=== PATIENT | female | born 1960 | race Caucasian/White ===

== ENCOUNTER → 2017-09-06 06:58 | Outpatient (CLI) | payer OTHER, SELFPAY ==
[2017-09-06 08:47] LABS: Alanine Aminotransferase 27 IU/L (9-52); Albumin 4.4 g/dL (3.5-5.0); Albumin Globulin Ratio 1.4 (1.0-2.8); Alkaline Phosphatase 80 U/L (38-126); Aspartate Aminotransferase 28 IU/L (14-36); Bilirubin Total 0.6 mg/dL (0.2-1.3); Calcium 9.8 mg/dL (8.4-10.2); Cholesterol 209 mg/dL (140-199); Estimated Glomerular Filt Rate > 60.0 mL/min (>60); Globulin 3.2 g/dL (1.7-4.1); Glucose 85 mg/dL (70-100); HDL Cholesterol 65 mg/dL (40-60); HEMOLYSIS < 15 (0-50); LDL Cholesterol Calculated 124 mg/dL (<100); Sodium 142 mmol/L (137-145); Total Protein 7.6 g/dL (6.3-8.2); Triglycerides 98 mg/dL (35-150)
[2017-09-06 09:05] LABS: Free T4, Direct Thyroxine 0.72 ng/dL (0.78-2.19)
[2017-09-06 09:20] LABS: Thyroid Stimulating Hormone 2.84 uIU/mL (0.47-4.68)
== END ==
PROVIDERS: PCP Internal Medicine; Visit Provider Internal Medicine
DX: N95.1 Menopausal and female climacteric states (principal); J45.909 Unspecified asthma, uncomplicated
CPT/HCPCS: 36415; 80053; 80061; 84439; 84443

== ENCOUNTER 2017-09-25 18:31 | Emergency (ER) | payer OTHER, SELFPAY ==
[2017-09-25 18:33] VITALS: BP 142/87; PULSE 69; RESP 18; TEMP 36.6; O2SAT 97; BMI 25.8
== END 2017-09-25 20:59 | disposition left against medical advice (07) ==
PROVIDERS: Family Provider Internal Medicine; PCP Internal Medicine
DX: R51 Headache (principal)
CPT/HCPCS: 99282

== ENCOUNTER 2017-09-26 13:22 | Emergency (ER) | payer OTHER, SELFPAY ==
[2017-09-26 13:30] VITALS: BP 125/81; PULSE 80; RESP 20; TEMP 36.6; O2SAT 98; BMI 26.1
--- NOTE | 2017-09-26 13:38 | DI.CT.S_ITS ---
PROCEDURE: CT HEAD/BRAIN WO CON INDICATIONS: 57 year-old female with bilateral temporal headaches. TECHNIQUE: Noncontrast 4.5 mm thick angled axial sections acquired from the foramen magnum to the vertex, with coronal and sagittal reformats. For radiation dose reduction, the following was used: automated exposure control, adjustment of mA and/or kV according to patient size. COMPARISON: None. FINDINGS: Image quality: Excellent. CSF spaces: Basal cisterns are patent. No extra-axial fluid collections. Ventricles are normal in size and shape. Brain: No midline shift. No intracranial masses or hemorrhage. Diaz-white matter interface is normal. Skull and face: Calvarium and visualized facial bones are intact, without suspicious lesions. Sinuses: Visualized sinuses and mastoids are clear. IMPRESSION: No acute intracranial abnormalities. Dictated by: Franck Husain M.D. on 09/26/2017 at 13:56 Approved by: Franck Husain M.D. on 09/26/2017 at 13:59
--- NOTE | 2017-09-26 13:50 | PC.NURSE ---
Pain in both temples
--- NOTE | 2017-09-26 14:18 | ED.HA ---
HPI - Headache <Luly JoseBLADE smileyP-BC - Last Filed: 09/26/17 19:17> General Chief Complaint: Headache Stated Complaint: NEED CT ON HEAD, HEADACHES Time Seen by Provider: 09/26/17 14:16 Source: patient and family Mode of arrival: ambulatory Limitations: no limitations History of Present Illness HPI Narrative: Patient presents with chief complaint of headache from sexual activity. She came to the emergency department yesterday, but left without being seen by the provider as she was sick of waiting. She was sent there from her PCPs office, who is concerned about new onset headache after sexual activity an orgasm. She denies any confusion, weakness, dizziness or altered mental status. Is described as a headache on both sides of her head and her temporal region. Related Data Home Medications Medication Instructions Recorded Confirmed CA PANTOTHENATE/FOLIC ACID/VIT 1 tab PO Q DAY #0 02/07/12 09/26/17 (MULTIVITAMIN) CALCIUM CITRATE/VITAMIN D3 1 tab PO DAILY #0 05/20/12 09/26/17 VITAMIN B COMPLEX (Vitamin B 1 tab PO DAILY #0 05/20/12 09/26/17 Complex) latanoprost 0.005 % eye drops 1 drp OPHTHALMIC (EYE) BEDTIME ml 09/11/17 09/26/17 peg 400-propylene glycol 0.4 %-0.3 1 drp OPHTHALMIC (EYE) DIRECTED 09/11/17 09/26/17 % eye drops ml Fish Oil 1 cap PO DAILY 09/26/17 09/26/17 Qvar RediHaler 1 puff INHALATION PRN PRN 09/26/17 09/26/17 estradiol [Vagifem] 10 mcg VG 2XW 09/26/17 09/26/17 fluticasone 1 spray INTRANASAL BID 09/26/17 09/26/17 magnesium oxide 400 mg PO DAILY 09/26/17 09/26/17 multivitamin 1 tab PO DAILY 09/26/17 09/26/17 peg 400-propylene glycol [Systane 1 drp OPHTHALMIC (EYE) DIRECTED 09/26/17 09/26/17 Ultra] valacyclovir 1,000 mg PO TID 09/26/17 09/26/17 Previous Rx's Medication Instructions Recorded venlafaxine [Effexor XR] 75 mg PO QDAY #90 tab 03/13/17 bupropion HCl [Wellbutrin SR] 150 mg PO BID #60 tab 09/17/17 Allergies Allergy/AdvReac Type Severity Reaction Status Date / Time No Known Drug Allergies Allergy Verified 09/25/17 17:57 Review of Systems <AUBREY Romero- - Last Filed: 09/26/17 19:17> Review of Systems GENERAL: Denies chills, fatigue, malaise, fever, sweats. HEENT: Denies sinus pain, ear pain, sore throat, difficulty swallowing, dizziness. RESPIRATORY: Denies dyspnea, cough, wheezing, hemoptysis, sputum. CARDIOVASCULAR: Denies chest pain, palpitations, orthopnea, edema, GASTROINTESTINAL: Denies nausea, vomiting, abdominal pain, diarrhea, constipation, melena. : Denies dysuria, frequency, incontinence, hematuria, urinary retention. MUSCULOSKELETAL: denies weakness, joint pain, or bony pain SKIN: Denies rash, skin lesions, or other NEUROLOGIC: see HPI PSYCHIATRIC: No concerning psychosocial issues. 12 point review of systems is negative except for those stated above Exam <AUBREY Romero- - Last Filed: 09/26/17 19:17> Narrative Exam Narrative: GENERAL: This is a well-nourished, well-developed patient, with at bedside HEAD: Atraumatic. Normocephalic. No temporal or scalp tenderness. EYES: Pupils equal round and reactive. Extraocular motions intact. No scleral icterus. No injection or drainage. ENT: Nose without bleeding, purulent drainage or septal hematoma. Throat without erythema, tonsillar hypertrophy or exudate. Uvula midline. Airway patent. NECK: Trachea midline. No JVD or lymphadenopathy. Supple, nontender, no meningeal signs. CARDIOVASCULAR: Regular rate and rhythm without murmurs, gallops, or rubs. RESPIRATORY: Clear to auscultation. Breath sounds equal bilaterally. No wheezes, rales, or rhonchi. GASTROINTESTINAL: Abdomen soft, non-tender, nondistended. No hepato-splenomegaly, or palpable masses. No guarding. EXTREMITIES: No clubbing, cyanosis, or edema. No joint tenderness, effusion, or edema noted. BACK: Nontender without deformity or crepitance. No flank tenderness. NEURO: AOx3., speech is normal without slurring, strength bilateral upper and lower extremities. Negative finger-nose test. Negative chin heel test. Cognition intact. Facial nerves grossly normal. SKIN: No rash or erythema. Initial Vital Signs Initial Vital Signs: Vital Signs Temperature 97.9 F 09/26/17 13:30 Pulse Rate 80 09/26/17 13:30 Respiratory Rate 20 09/26/17 13:30 Blood Pressure 125/81 H 09/26/17 13:30 Pulse Oximetry 98 09/26/17 13:30 <Aarti Fernando DO - Last Filed: 09/28/17 07:51> Initial Vital Signs Initial Vital Signs: Vital Signs Temperature 97.9 F 09/26/17 13:30 Pulse Rate 80 09/26/17 13:30 Respiratory Rate 20 09/26/17 13:30 Blood Pressure 125/81 H 09/26/17 13:30 Pulse Oximetry 98 09/26/17 13:30 Course <AUBREY Romero-BC - Last Filed: 09/26/17 19:17> Orders Ordered: ED Orders 09/26/17 13:38 CT head/brain wo con Stat Reevaluation(s) Reevaluation #1: Discussed negative CT result with the patient as well as her . Patient again refused pain medication for headache, stating her headache was only a 2 to 3/10. She states she would rather take something at home. She states understanding of becoming re-evaluated if any neuro deficits occur including slurred speech, weakness on 1 side, or confusion. Time: 14:40 Reevaluation #2: Discussed with patient and that negative CT does not entirely rule out a brain bleed or subarachnoid hemorrhage. Discussed that a lumbar puncture would be needed to do that. However patient has been do not want to go that route and declined that at this point time. Again refused pain medication and stated understanding of discharge and return precautions. Time: 14:50 Vital Signs - 8 hr 09/26/17 13:30 Temperature 97.9 F Pulse Rate 80 Respiratory Rate 20 Blood Pressure 125/81 H Pulse Oximetry 98 <Aarti Fernando DO - Last Filed: 09/28/17 07:51> Orders Ordered: ED Orders 09/26/17 13:38 CT head/brain wo con Stat Vital Signs - 8 hr 09/26/17 13:30 Temperature 97.9 F Pulse Rate 80 Respiratory Rate 20 Blood Pressure 125/81 H Pulse Oximetry 98 MDM - Headache <Luly Chaparro, WARDROBE ASSISTANT-BC - Last Filed: 09/26/17 19:17> Imaging Data CT scan - head: Radiologist's impression: BILL [place] [id number] CT Scan Report Signed Patient: Roxana Romero MR#: [id number] : 1960 Acct:[id number] Age/Sex: 57 / F Date of Service: 09/26/17 Loc: ED Accession Number: [id number] Procedure: CT head/brain wo con Ordering Provider: Aarti Fernando D.O. PROCEDURE: CT HEAD/BRAIN WO CON INDICATIONS: 57 year-old female with bilateral temporal headaches. TECHNIQUE: Noncontrast 4.5 mm thick angled axial sections acquired from the foramen magnum to the vertex, with coronal and sagittal reformats. For radiation dose reduction, the following was used: automated exposure control, adjustment of mA and/or kV according to patient size. COMPARISON: None. FINDINGS: Image quality: Excellent. CSF spaces: Basal cisterns are patent. No extra-axial fluid collections. Ventricles are normal in size and shape. Brain: No midline shift. No intracranial masses or hemorrhage. Diaz-white matter interface is normal. Skull and face: Calvarium and visualized facial bones are intact, without suspicious lesions. Sinuses: Visualized sinuses and mastoids are clear. IMPRESSION: No acute intracranial abnormalities. Dictated by: Franck Husain M.D. on 09/26/2017 at 13:56 Approved by: Franck Husain M.D. on 09/26/2017 at 13:59 [facility] Narrative Medical decision making narrative: Patient presents with headache prompted by sexual activity. Her neuro exam is benign and her vital signs are within normal limits. A CT was performed to rule out any intracranial abnormality. She repeatedly declined pain medication in the emergency department and stated that just wanted a head CT. Given that her headache was only a 2 to 3/10 and she was declining medication as well as a negative head CT, I discharged her to home with her . She declined any further workup today. She plans on following up with her primary care provider if needed. I discussed at length with patient and her return precautions to the emergency department including weakness, slurred speech or any signs or symptoms of stroke or acute neuro symptoms. Discharge Plan Departure Patient Disposition: Home, Self-Care Clinical Impression: Headache Discharge Date/Time: 09/26/17 14:59 Interventions: ED Discharge Assessment Last Done: 09/26/17 14:58 Instructions: Sexual Headaches: From Ecstasy to Agony, DI for Headache Activity Restrictions/Additional Instructions: Your head CT came back normal today. Feel free to come back to the emergency department if you have any concerns about stroke or head bleed including confusion, slurred speech or any other acute neuro concerns. Feel free to take [id number] medication as needed for pain. You declined pain medication in the emergency department. I have given you information on headaches and headaches induced by sexual activity. I suggest following up with your primary care provider. Prescriptions: No Action CA PANTOTHENATE/FOLIC ACID/VIT (MULTIVITAMIN) 1 tab PO Q DAY Qty: 0 RF: 0 CALCIUM CITRATE/VITAMIN D3 1 tab PO DAILY Qty: 0 RF: 0 VITAMIN B COMPLEX (Vitamin B Complex) 1 tab PO DAILY Qty: 0 RF: 0 venlafaxine [Effexor XR] 75 MG capsule,extended release 24hr 75 mg PO QDAY Qty: 90 RF: 3 bupropion HCl [Wellbutrin SR] 150 mg tablet extended release 12 hr 150 mg PO BID Qty: 60 RF: 2 latanoprost [Xalatan] 0.005 % drops 1 drp ophthalmic (eye) BEDTIME RF: 0 peg 400-propylene glycol [Systane Ultra] 0.4-0.3 % drops 1 drp ophthalmic (eye) DIRECTED RF: 0 magnesium oxide 400 mg Tablet 400 mg PO DAILY RF: 0 fluticasone 50 mcg/actuation [place],Suspension 1 spray INTRANASAL BID RF: 0 peg 400-propylene glycol [Systane Ultra] 0.4-0.3 % Drops 1 drp ophthalmic (eye) DIRECTED RF: 0 Fish Oil 1 cap PO DAILY RF: 0 Qvar RediHaler 1 puff Inhalation PRN PRN (Reason: Shortness Of Breath) RF: 0 multivitamin 1 tab PO DAILY RF: 0 valacyclovir 1,000 MG tablet 1,000 mg PO TID RF: 0 estradiol [Vagifem] 10 MCG tablet 10 mcg VG 2XW RF: 0 Referrals: Mike Aguilar MD [Primary Care Provider] - <Aarti Fernando DO - Last Filed: 09/28/17 07:51> Cosign ED Attending Cosgiovannaature Attestation: I was immediately available in the department for consultation. Documentation has been reviewed. I agree with assessment and plan.
--- NOTE | 2017-09-26 14:48 | ED_ITS ---
HPI - Headache <Lluy JoseBLADE smileyP-BC - Last Filed: 09/26/17 19:17> General Chief Complaint: Headache Stated Complaint: NEED CT ON HEAD, HEADACHES Time Seen by Provider: 09/26/17 14:16 Source: patient and family Mode of arrival: ambulatory Limitations: no limitations History of Present Illness HPI Narrative: Patient presents with chief complaint of headache from sexual activity. She came to the emergency department yesterday, but left without being seen by the provider as she was sick of waiting. She was sent there from her PCPs office, who is concerned about new onset headache after sexual activity an orgasm. She denies any confusion, weakness, dizziness or altered mental status. Is described as a headache on both sides of her head and her temporal region. Related Data Home Medications Medication Instructions Recorded Confirmed CA PANTOTHENATE/FOLIC ACID/VIT 1 tab PO Q DAY #0 02/07/12 09/26/17 (MULTIVITAMIN) CALCIUM CITRATE/VITAMIN D3 1 tab PO DAILY #0 05/20/12 09/26/17 VITAMIN B COMPLEX (Vitamin B 1 tab PO DAILY #0 05/20/12 09/26/17 Complex) latanoprost 0.005 % eye drops 1 drp OPHTHALMIC (EYE) BEDTIME ml 09/11/17 peg 400-propylene glycol 0.4 %-0.3 1 drp OPHTHALMIC (EYE) DIRECTED 09/11/17 09/26/17 % eye drops ml Fish Oil 1 cap PO DAILY 09/26/17 09/26/17 Qvar RediHaler 1 puff INHALATION PRN PRN 09/26/17 09/26/17 estradiol [Vagifem] 10 mcg VG 2XW 09/26/17 09/26/17 fluticasone 1 spray INTRANASAL BID 09/26/17 09/26/17 magnesium oxide 400 mg PO DAILY 09/26/17 09/26/17 multivitamin 1 tab PO DAILY 09/26/17 09/26/17 peg 400-propylene glycol [Systane 1 drp OPHTHALMIC (EYE) DIRECTED 09/26/17 Ultra] valacyclovir 1,000 mg PO TID 09/26/17 09/26/17 Previous Rx's Medication Instructions Recorded venlafaxine [Effexor XR] 75 mg PO QDAY #90 tab 03/13/17 bupropion HCl [Wellbutrin SR] 150 mg PO BID #60 tab 09/17/17 Allergies Allergy/AdvReac Type Severity Reaction Status Date / Time No Known Drug Allergies Allergy Verified 09/25/17 17:57 Review of Systems <AUBREY Romero- - Last Filed: 09/26/17 19:17> Review of Systems GENERAL: Denies chills, fatigue, malaise, fever, sweats. HEENT: Denies sinus pain, ear pain, sore throat, difficulty swallowing, dizziness. RESPIRATORY: Denies dyspnea, cough, wheezing, hemoptysis, sputum. CARDIOVASCULAR: Denies chest pain, palpitations, orthopnea, edema, GASTROINTESTINAL: Denies nausea, vomiting, abdominal pain, diarrhea, constipation, melena. : Denies dysuria, frequency, incontinence, hematuria, urinary retention. MUSCULOSKELETAL: denies weakness, joint pain, or bony pain SKIN: Denies rash, skin lesions, or other NEUROLOGIC: see HPI PSYCHIATRIC: No concerning psychosocial issues. 12 point review of systems is negative except for those stated above Exam <AUBREY Romero- - Last Filed: 09/26/17 19:17> Narrative Exam Narrative: GENERAL: This is a well-nourished, well-developed patient, with at bedside HEAD: Atraumatic. Normocephalic. No temporal or scalp tenderness. EYES: Pupils equal round and reactive. Extraocular motions intact. No scleral icterus. No injection or drainage. ENT: Nose without bleeding, purulent drainage or septal hematoma. Throat without erythema, tonsillar hypertrophy or exudate. Uvula midline. Airway patent. NECK: Trachea midline. No JVD or lymphadenopathy. Supple, nontender, no meningeal signs. CARDIOVASCULAR: Regular rate and rhythm without murmurs, gallops, or rubs. RESPIRATORY: Clear to auscultation. Breath sounds equal bilaterally. No wheezes , rales, or rhonchi. GASTROINTESTINAL: Abdomen soft, non-tender, nondistended. No hepato-splenomegaly , or palpable masses. No guarding. EXTREMITIES: No clubbing, cyanosis, or edema. No joint tenderness, effusion, or edema noted. BACK: Nontender without deformity or crepitance. No flank tenderness. NEURO: AOx3., speech is normal without slurring, strength bilateral upper and lower extremities. Negative finger-nose test. Negative chin heel test. Cognition intact. Facial nerves grossly normal. SKIN: No rash or erythema. Initial Vital Signs Initial Vital Signs: Vital Signs Temperature 97.9 F 09/26/17 13:30 Pulse Rate 80 09/26/17 13:30 Respiratory Rate 20 09/26/17 13:30 Blood Pressure 125/81 H 09/26/17 13:30 Pulse Oximetry 98 09/26/17 13:30 <Aarti Fernando DO - Last Filed: 09/28/17 07:51> Initial Vital Signs Initial Vital Signs: Vital Signs Temperature 97.9 F 09/26/17 13:30 Pulse Rate 80 09/26/17 13:30 Respiratory Rate 20 09/26/17 13:30 Blood Pressure 125/81 H 09/26/17 13:30 Pulse Oximetry 98 09/26/17 13:30 Course <AUBREY Romero-BC - Last Filed: 09/26/17 19:17> Orders Ordered: ED Orders 09/26/17 13:38 CT head/brain wo con Stat Reevaluation(s) Reevaluation #1: Discussed negative CT result with the patient as well as her . Patient again refused pain medication for headache, stating her headache was only a 2 to 3/10. She states she would rather take something at home. She states understanding of becoming re-evaluated if any neuro deficits occur including slurred speech, weakness on 1 side, or confusion. Time: 14:40 Reevaluation #2: Discussed with patient and that negative CT does not entirely rule out a brain bleed or subarachnoid hemorrhage. Discussed that a lumbar puncture would be needed to do that. However patient has been do not want to go that route and declined that at this point time. Again refused pain medication and stated understanding of discharge and return precautions. Time: 14:50 Vital Signs - 8 hr 09/26/17 13:30 Temperature 97.9 F Pulse Rate 80 Respiratory Rate 20 Blood Pressure 125/81 H Pulse Oximetry 98 <Aarti Fernando DO - Last Filed: 09/28/17 07:51> Orders Ordered: ED Orders 09/26/17 13:38 CT head/brain wo con Stat Vital Signs - 8 hr 09/26/17 13:30 Temperature 97.9 F Pulse Rate 80 Respiratory Rate 20 Blood Pressure 125/81 H Pulse Oximetry 98 MDM - Headache <Luly Chaparro, MANAGER BRIDGE-BC - Last Filed: 09/26/17 19:17> Imaging Data CT scan - head: Radiologist's impression: BILL Sue [id number] CT Scan Report Signed Patient: Roxana Romero MR#: [id number] : 1960 Acct:[id number] Age/Sex: 57 / F Date of Service: 09/26/17 Loc: ED Accession Number: [id number] Procedure: CT head/brain wo con Ordering Provider: Aarti Fernando D.O. PROCEDURE: CT HEAD/BRAIN WO CON INDICATIONS: 57 year-old female with bilateral temporal headaches. TECHNIQUE: Noncontrast 4.5 mm thick angled axial sections acquired from the foramen magnum to the vertex, with coronal and sagittal reformats. For radiation dose reduction, the following was used: automated exposure control, adjustment of mA and/or kV according to patient size. COMPARISON: None. FINDINGS: Image quality: Excellent. CSF spaces: Basal cisterns are patent. No extra-axial fluid collections. Ventricles are normal in size and shape. Brain: No midline shift. No intracranial masses or hemorrhage. Diaz-white matter interface is normal. Skull and face: Calvarium and visualized facial bones are intact, without suspicious lesions. Sinuses: Visualized sinuses and mastoids are clear. IMPRESSION: No acute intracranial abnormalities. Dictated by: Franck Husain M.D. on 09/26/2017 at 13:56 Approved by: Franck Husain M.D. on 09/26/2017 at 13:59 [facility] Narrative Medical decision making narrative: Patient presents with headache prompted by sexual activity. Her neuro exam is benign and her vital signs are within normal limits. A CT was performed to rule out any intracranial abnormality. She repeatedly declined pain medication in the emergency department and stated that just wanted a head CT. Given that her headache was only a 2 to 3/10 and she was declining medication as well as a negative head CT, I discharged her to home with her . She declined any further workup today. She plans on following up with her primary care provider if needed. I discussed at length with patient and her return precautions to the emergency department including weakness, slurred speech or any signs or symptoms of stroke or acute neuro symptoms. Discharge Plan Departure Patient Disposition: Home, Self-Care Clinical Impression: Headache Discharge Date/Time: 09/26/17 14:59 Interventions: ED Discharge Assessment Last Done: 09/26/17 14:58 Instructions: Sexual Headaches: From Ecstasy to Agony, DI for Headache Activity Restrictions/Additional Instructions: Your head CT came back normal today. Feel free to come back to the emergency department if you have any concerns about stroke or head bleed including confusion, slurred speech or any other acute neuro concerns. Feel free to take sjpm-owz-jfhfeoo medication as needed for pain. You declined pain medication in the emergency department. I have given you information on headaches and headaches induced by sexual activity. I suggest following up with your primary care provider. Prescriptions: No Action CA PANTOTHENATE/FOLIC ACID/VIT (MULTIVITAMIN) 1 tab PO Q DAY Qty: 0 RF: 0 CALCIUM CITRATE/VITAMIN D3 1 tab PO DAILY Qty: 0 RF: 0 VITAMIN B COMPLEX (Vitamin B Complex) 1 tab PO DAILY Qty: 0 RF: 0 venlafaxine [Effexor XR] 75 MG capsule,extended release 24hr 75 mg PO QDAY Qty: 90 RF: 3 bupropion HCl [Wellbutrin SR] 150 mg tablet extended release 12 hr 150 mg PO BID Qty: 60 RF: 2 latanoprost [Xalatan] 0.005 % drops 1 drp ophthalmic (eye) BEDTIME RF: 0 peg 400-propylene glycol [Systane Ultra] 0.4-0.3 % drops 1 drp ophthalmic (eye) DIRECTED RF: 0 magnesium oxide 400 mg Tablet 400 mg PO DAILY RF: 0 fluticasone 50 mcg/actuation [place],Suspension 1 spray INTRANASAL BID RF: 0 peg 400-propylene glycol [Systane Ultra] 0.4-0.3 % Drops 1 drp ophthalmic (eye) DIRECTED RF: 0 Fish Oil 1 cap PO DAILY RF: 0 Qvar RediHaler 1 puff Inhalation PRN PRN (Reason: Shortness Of Breath) RF: 0 multivitamin 1 tab PO DAILY RF: 0 valacyclovir 1,000 MG tablet 1,000 mg PO TID RF: 0 estradiol [Vagifem] 10 MCG tablet 10 mcg VG 2XW RF: 0 Referrals: Mike Aguilar MD [Primary Care Provider] - <Aarti Fernando DO - Last Filed: 09/28/17 07:51> Cosign ED Attending Cosgiovannaature Attestation: I was immediately available in the department for consultation. Documentation has been reviewed. I agree with assessment and plan.
== END 2017-09-26 14:59 | disposition home or self-care (01) ==
PROVIDERS: Emergency Provider Nurse Practitioner Family; Family Provider Internal Medicine; PCP Internal Medicine
DX: R51 Headache (principal)
CPT/HCPCS: 70450; 99282; 99284

== ENCOUNTER → 2017-11-22 09:18 | Outpatient (CLI) | payer OTHER, SELFPAY ==
--- NOTE | 2017-11-22 | DI.MG.S_ITS ---
BILATERAL DIGITAL SCREENING MAMMOGRAM 3D/2D WITH CAD: 11/22/2017 CLINICAL: Routine screening. Family history of breast cancer. Comparison is made to exams dated: 08/24/2016 mammogram, 07/23/2015 mammogram, and 06/14/2012 mammogram - [facility]. The tissue of both breasts is heterogeneously dense. This may lower the sensitivity of mammography. Current study was also evaluated with a Computer Aided Detection (CAD) system. There is an asymmetry in the left breast middle depth lateral region seen on the craniocaudal view only. No other significant masses, calcifications, or other findings are seen in either breast. IMPRESSION: INCOMPLETE: NEEDS ADDITIONAL IMAGING EVALUATION The asymmetry in the left breast is indeterminate. Additional views with possible ultrasound are recommended. This exam was interpreted at Station ID: [id number]. NOTE: For mammograms, a report in lay terms will be sent to the patient. Approximately 15% of breast malignancies will not be visualized mammographically. In the management of a palpable breast mass, a negative mammogram must not discourage biopsy of a clinically suspicious lesion. Electronically Signed By: Hafsa contreras/jer:11/22/2017 09:56:45 letter sent: Additional Imaging Needed ACR BI-RADS Category 0: Incomplete 3340F
== END ==
PROVIDERS: PCP Internal Medicine; Visit Provider Internal Medicine
DX: Z12.31 Encounter for screening mammogram for malignant neoplasm of breast (principal); Z80.3 Family history of malignant neoplasm of breast
CPT/HCPCS: 77063; 77067

== ENCOUNTER → 2017-12-18 14:43 | Outpatient (CLI) | payer OTHER, SELFPAY ==
--- NOTE | 2017-12-18 14:44 | DI.US.S_ITS ---
PROCEDURE: US BREAST LT LIMITED COMPARISON: None. INDICATIONS: abnormal mammo L breast FINDINGS: IMPRESSION: Dictated by: Hafsa Johnson M.D. on 12/18/2017 at 17:23 Approved by: Hafsa Johnson M.D. on 12/18/2017 at 17:27
--- NOTE | 2017-12-18 14:44 | DI.MG.S_ITS ---
UNILATERAL LEFT DIGITAL DIAGNOSTIC MAMMOGRAM 3D/2D WITH ADDITIONAL VIEWS: 12/18/2017 CLINICAL: Additional evaluation requested from prior study. Family history of breast cancer. Comparison is made to exams dated: 11/22/2017 mammogram, 08/24/2016 mammogram, and 07/23/2015 mammogram - [facility]. The tissue of the left breast is heterogeneously dense. This may lower the sensitivity of mammography. There is a cluster of 1 mm to 2 mm masses in the left breast at 1 o'clock posterior depth. No other significant masses or calcifications are seen in the breast. IMPRESSION: INCOMPLETE: NEEDS ADDITIONAL IMAGING EVALUATION The cluster of 1 mm to 2 mm masses in the left breast likely represents clustered cysts or lymph nodes and is indeterminate. An ultrasound is recommended. This exam was interpreted at Station ID: [id number]. NOTE: For mammograms, a report in lay terms will be sent to the patient. Approximately 15% of breast malignancies will not be visualized mammographically. In the management of a palpable breast mass, a negative mammogram must not discourage biopsy of a clinically suspicious lesion. Electronically Signed By: Hafsa contreras/:12/18/2017 15:20:32 letter sent: Additional Imaging Needed ACR BI-RADS Category 0: Incomplete 3340F
== END ==
PROVIDERS: PCP Internal Medicine; Visit Provider Internal Medicine
DX: R92.8 Other abnormal and inconclusive findings on diagnostic imaging of breast (principal); N63.21 Unspecified lump in the left breast, upper outer quadrant; N60.02 Solitary cyst of left breast; Z80.3 Family history of malignant neoplasm of breast
CPT/HCPCS: 76642; 77065; G0279

== ENCOUNTER → 2018-06-20 13:17 | Outpatient (CLI) | payer OTHER, SELFPAY ==
--- NOTE | 2018-06-20 13:19 | DI.MG.S_ITS ---
UNILATERAL LEFT DIGITAL DIAGNOSTIC MAMMOGRAM 3D/2D: 06/20/2018 CLINICAL: Patient returns for a 6 month follow up of the left breast. Family history of breast cancer. Comparison is made to exams dated: 12/18/2017 mammogram, 11/22/2017 mammogram, 08/24/2016 mammogram, and 07/23/2015 mammogram - [facility]. The tissue of left breast is heterogeneously dense. This may lower the sensitivity of mammography. Previously noted grouped subcentimeter masses in the upper outer left breast at posterior depth are stable to prior comparison exams of 12/18/2017 and 11/22/2017. There has been no significant interval change. IMPRESSION: INCOMPLETE: NEEDS ADDITIONAL IMAGING EVALUATION Previously noted grouped subcentimeter masses in the upper outer left breast at posterior depth are stable to prior comparison exams of 12/18/2017 and 11/22/2017. A targeted ultrasound is recommended for further evaluation. This exam was interpreted at Station ID: [id number]. NOTE: For mammograms, a report in lay terms will be sent to the patient. Approximately 15% of breast malignancies will not be visualized mammographically. In the management of a palpable breast mass, a negative mammogram must not discourage biopsy of a clinically suspicious lesion. Electronically Signed By: Abisai Andrews M.D. ecl/:06/20/2018 14:17:41 letter sent: Additional Imaging Needed ACR BI-RADS Category 0: Incomplete 3340F
--- NOTE | 2018-06-20 13:19 | DI.US.S_ITS ---
LIMITED ULTRASOUND OF LEFT BREAST: 06/20/2018 CLINICAL: Patient returns for a 6 month follow up of the left breast. Comparison is made to exams dated: 06/20/2018 mammogram, 12/18/2017 ultrasound, 12/18/2017 mammogram, 08/24/2016 mammogram, 11/22/2017 mammogram, and 07/23/2015 mammogram - [facility]. Real-time and Doppler ultrasound of the left breast upper outer quadrant were performed. Diaz scale images of the real-time examination were reviewed. There is a 0.4 x 0.3 x 0.3 cm oval circumscribed anechoic cyst with posterior acoustic enhancement and no vascularity on Doppler ultrasound in the left breast at 2:00 position 5 cm from the nipple. This previously measured 0.4 x 0.4 x 0.4 cm on comparison exam of 12/18/17. This appears to correlate with the findings seen on comparison mammography. There is a 0.7 x 0.3 x 0.5 cm peripherally hypoechoic and centrally hyperechoic probable lymph node in the left breast at 1:00 4 cm from the nipple, which demonstrates no abnormal vascularity on Doppler ultrasound. This appears to correlate with the findings seen on comparison mammography. There is a 0.4 x 0.3 x 0.3 cm peripherally hypoechoic and centrally hyperechoic probable lymph node in the left breast at 1:00 5 cm from the nipple, which demonstrates minimal hilar vascularity on Doppler ultrasound. IMPRESSION: PROBABLY BENIGN 1) Probable subcentimeter intramammary lymph nodes in the left breast at 1:00 position 4 cm from nipple and 1:00 position 5 cm from the nipple. These appear to correlate with the findings seen on mammography. Recommend followup diagnostic mammogram and targeted left breast ultrasound in 6 months to demonstrate stability. The patient is advised to monitor her breasts and to return sooner for re-evaluation should she feel anything grow or change. 2) Stable 0.4 cm benign simple cyst in the left breast at 2:00 position 5 cm. This exam was interpreted at Station ID: [id number]. Electronically Signed By: Abisai Andrews M.D. ecl/:06/21/2018 08:39:06 letter sent: Followup Recommended Ultrasound BI-RADS: 3 Probably benign
== END ==
PROVIDERS: PCP Internal Medicine; Visit Provider Internal Medicine
DX: R92.8 Other abnormal and inconclusive findings on diagnostic imaging of breast (principal); N63.21 Unspecified lump in the left breast, upper outer quadrant; N60.02 Solitary cyst of left breast; Z80.3 Family history of malignant neoplasm of breast
CPT/HCPCS: 76642; 77065; G0279

== ENCOUNTER → 2018-12-26 14:07 | Outpatient (CLI) | payer OTHER, SELFPAY ==
[2018-12-26 15:45] LABS: Alanine Aminotransferase 30 IU/L (9-52); Albumin 4.5 g/dL (3.5-5.0); Albumin Globulin Ratio 1.5 (1.0-2.8); Alkaline Phosphatase 93 U/L (38-126); Aspartate Aminotransferase 30 IU/L (14-36); BUN Creatinine Ratio 25.7 (6-22); Bilirubin Total 0.4 mg/dL (0.2-1.3); Blood Urea Nitrogen 18 mg/dL (7-17); Carbon Dioxide 29 mmol/L (22-32); Chloride 102 mmol/L (98-107); Estimated Glomerular Filt Rate > 60.0 mL/min (>60); Glucose 84 mg/dL (70-100); HEMOLYSIS < 15 (0-50); Potassium 4.1 mmol/L (3.4-5.1); Sodium 140 mmol/L (137-145); Total Protein 7.5 g/dL (6.3-8.2)
== END ==
PROVIDERS: PCP Internal Medicine; Visit Provider Internal Medicine
DX: D25.9 Leiomyoma of uterus, unspecified (principal); F33.1 Major depressive disorder, recurrent, moderate; J45.909 Unspecified asthma, uncomplicated; K58.9 Irritable bowel syndrome, unspecified; Z13.1 Encounter for screening for diabetes mellitus; Z13.6 Encounter for screening for cardiovascular disorders
CPT/HCPCS: 36415; 80053

== ENCOUNTER → 2019-04-23 13:36 | Outpatient (CLI) | payer OTHER, SELFPAY ==
--- NOTE | 2019-04-23 13:37 | DI.MG.S_ITS ---
BILATERAL DIGITAL DIAGNOSTIC MAMMOGRAM 3D/2D SHORT-TERM FOLLOW-UP: 04/23/2019 CLINICAL: Short term follow up left breast. Due Bilaterally. Family history of breast cancer. Comparison is made to exams dated: 06/20/2018 mammogram, 12/18/2017 mammogram, and 11/22/2017 mammogram - [facility]. The tissue of both breasts is heterogeneously dense. This may lower the sensitivity of mammography. There is a benign architectural distortion in the right breast at 11 o'clock anterior depth. This is not significantly changed. There is a biopsy clip associated with the architectural distortion. There is a 5 mm oval asymmetry in the left breast middle depth upper outer quadrant region. This is not significantly changed. No other significant masses or calcifications are seen in either breast. IMPRESSION: INCOMPLETE: NEEDS ADDITIONAL IMAGING EVALUATION The 5 mm oval asymmetry in the left breast has been mammographically stable. An ultrasound is recommended for confirmation of stability. This was performed immediately following this exam. This exam was interpreted at Station ID: [id number]. NOTE: For mammograms, a report in lay terms will be sent to the patient. Approximately 15% of breast malignancies will not be visualized mammographically. In the management of a palpable breast mass, a negative mammogram must not discourage biopsy of a clinically suspicious lesion. Electronically Signed By: Anny wadr/:04/23/2019 14:12:49 ACR BI-RADS Category 0: Incomplete 3340F
--- NOTE | 2019-04-23 13:37 | DI.US.S_ITS ---
ULTRASOUND OF LEFT BREAST: 04/23/2019 CLINICAL: 6 month f/u lt. Comparison is made to exams dated: 04/23/2019 mammogram, 06/20/2018 ultrasound, 06/20/2018 mammogram, 12/18/2017 ultrasound, 12/18/2017 mammogram, and 11/22/2017 mammogram - [facility]. Color flow and real-time ultrasound of the left breast were performed. Diaz scale images of the real-time examination were reviewed. There is a 0.5 x 0.4 x 0.3 cm oval circumscribed anechoic cyst with posterior acoustic enhancement and no vascularity on Doppler ultrasound in the left breast at 2:00 position 5 cm from the nipple. This is stable. Heterogeneous fibrous breast tissue at the 1:00 position in the left breast 4 and 5 cm from the nipple may contain stable benign appearing intramammary lymph nodes. No significant changes. No suspicious vascularity or shadow. IMPRESSION: BENIGN Benign, stable simple cyst at 2:00. Stable upper outer quadrant fibrous tissue with stable morphology of probable intramammary lymphnodes. There is no sonographic evidence of malignancy. Return to annual mammogram screening schedule is recommended. Findings and recommendations were conveyed to the patient at time of exam. This exam was interpreted at Station ID: [id number]. Electronically Signed By: Anny ward/:04/23/2019 14:59:20 letter sent: Normal Exam Ultrasound BI-RADS: 2 Benign
== END ==
PROVIDERS: PCP Internal Medicine; Visit Provider Internal Medicine
DX: R92.8 Other abnormal and inconclusive findings on diagnostic imaging of breast (principal); N60.02 Solitary cyst of left breast; N64.89 Other specified disorders of breast; Z80.3 Family history of malignant neoplasm of breast
CPT/HCPCS: 76642; 77066; G0279